=== PATIENT | female | born 1960 | race Caucasian/White ===

== ENCOUNTER 2016-06-02 09:32 | Emergency (ER) | payer OTHER ==
[2016-06-02] MEDS ORDERED: ACETAMINOPHEN 500 MG TAB ONE (10:12)
[2016-06-02] MEDS ORDERED: ACETAMINOPHEN 500 MG TAB PO ONE (10:20)
--- NOTE | 2016-06-02 11:13 | UCPHY ---
H & P Time Seen by Provider: 06/02/16 10:30 Patient Type: Established HPI/ROS: This patient has cough associated with high fevers and chills. She describes as a dry hacky cough that started yesterday associated with myalgias and fatigue. She also has a headache that follows the fever and decreases with over-the- counter antipyretics. No other exacerbating or alleviating factors. ROS: Constitutional: No complaints other than noted in HPI HEENT: Mild nasal congestion. No sore throat. She has mild ear pressure right more than left Pulmonary: No pleuritic pain. No respiratory distress Cardiac: No lightheadedness or heart palpitations A GI: No belly pain or vomiting. No diarrhea Integumentary: No skin rash 7 point ROS is otherwise negative Smoking Status: Never smoked Physical Exam: General Appearance: Alert, no distress. Eyes: Pupils equal and round no pallor or injection. ENT, Mouth: Mucous membranes moist. Respiratory: Mild rhonchi bilaterally. No rales. No significant wheeze. No increased work of breathing Cardiovascular: Regular rate and rhythm. No murmur gallop rub. Gastrointestinal: Abdomen is soft and nontender, no masses, bowel sounds normal. Neurological: Alert with no focal deficits Skin: Warm and dry, no rashes. Musculoskeletal: Neck is supple nontender. Extremities are symmetrical, full range of motion. Psychiatric: Mood and affect are normal DIFFERENTIAL DIAGNOSIS: After history and physical exam differential diagnosis was considered for influenza, bronchitis, pneumonia Constitutional: Initial Vital Signs Temperature (C) 39.4 C H 06/02/16 10:17 Heart Rate 99 06/02/16 10:17 Respiratory Rate 18 06/02/16 10:17 Blood Pressure 136/96 H 06/02/16 10:17 O2 Sat (%) 97 06/02/16 10:17 O2 Delivery Mode Room Air Allergies/Adverse Reactions: erythromycin base [Erythromycin Base] Allergy (Severe, Verified 06/02/16 10:19) Rash mefenamic acid [From Ponstel] Allergy (Severe, Verified 06/02/16 10:19) Rash Sulfa (Sulfonamide Antibiotics) Allergy (Severe, Verified 06/02/16 10:19) Rash cephalexin monohydrate [From Keflex] Allergy (Intermediate, Verified 06/02/16 10 :19) Other-Enter Comments Home Medications: Medication Instructions Recorded Tums 500MG (OTC) 10/19/14 Vitamin D3 (OTC) 10/19/14 traMADOL 10/19/14 Albuterol Hfa Anes Only [Proair 2 puffs IH Q4 PRN #1 mdi 06/02/16 Hfa Icu (*)] Calcium 06/02/16 Duloxetine HCl 06/02/16 MDM/Departure - MDM Medications Given: Discontinued Medications Acetaminophen (Tylenol) 1,000 mg PO EDNOW ONE Stop: 06/02/16 10:21 Last Admin: 06/02/16 10:22 Dose: 1,000 mg ED Course/Re-evaluation: Antipyretics with defervescence. Findings are classic for pneumonia. She appears nontoxic. Not think she has lower respiratory infection. I counseled regarding this. I suspect that the rapid flu test is a false negative on this patient. - Depart Disposition: Home, Routine, Self-Care Clinical Impression: Flu-like illness Condition: Fair Instructions: Influenza (ED) Additional Instructions: Diagnosis: Flu-like illness Although your for rapid flu test is negative think this is a false negative in this case. Findings are consistent with influenza Plan: Humidifier Ibuprofen or Tylenol for fevers and aches Albuterol inhaler with spacer for cough, wheeze or shortness of breath No work until ear fever has resolved for 24 hours more Return for any significant worsening despite the treatment plan Stand Alone Forms: Work Excuse Prescriptions: Albuterol Hfa Anes Only [Proair Hfa Icu (*)] 2 puffs IH Q4 PRN #1 mdi PRN Reason: Wheezing Referrals: MARIA D LAWRENCE [Primary Care Provider] - As per Instructions - PQRS PQRS Measurement: NA
[2016-06-02 11:25] VITALS: BP 122/88; PULSE 91; RESP 16; TEMP 99.9; O2SAT 92
== END 2016-06-02 11:24 | disposition home or self-care (01) ==
LOC: CED 09:32
DX: J11.1 Influenza due to unidentified influenza virus with other respiratory manifestations (principal)
CPT/HCPCS: 87400-PO; 99214-PO; G0463-PO

== ENCOUNTER 2016-09-17 18:41 | Emergency (ER) | payer OTHER ==
[2016-09-17 18:48] VITALS: BP 123/90; PULSE 81; RESP 18; TEMP 98.6; O2SAT 96
--- NOTE | 2016-09-17 19:17 | UCPHY ---
H & P Patient Type: Established Chief Complaint Nursing Narrative: hit r foot on car tire. Time Seen by Provider: 09/17/16 19:15 HPI/ROS: Chief complaint: Right small all toe pain HPI: 56-year-old woman accidentally struck her right little toe on her car tire 2 days ago. Has had pain and swelling at the site since then. No prior injuries. ROS: 10 point Review of Systems is negative except as noted in the HPI. Physical exam: General: Awake, alert, no acute distress Right foot: No ankle pain or tenderness, full range of motion of pain. No foot pain or tenderness other than tenderness and swelling at the base of her right little toe. There is ecchymosis and tenderness over her proximal phalanx. - Personal History Tetanus Vaccine Date: WITHIN 10 YRS - Medical/Surgical History Hx Asthma: No Hx Chronic Respiratory Disease: No Hx Diabetes: No Hx Cardiac Disease: No Hx Renal Disease: No Hx Cirrhosis: No Hx Alcoholism: No Hx HIV/AIDS: No Hx Splenectomy or Spleen Trauma: No Other PMH: denies - Family History Significant Family History: No pertinent family hx - Social History Smoking Status: Never smoked Constitutional: Initial Vital Signs Temperature (C) 37 C 09/17/16 18:45 Heart Rate 81 09/17/16 18:45 Respiratory Rate 18 09/17/16 18:45 Blood Pressure 123/90 H 09/17/16 18:45 O2 Sat (%) 96 09/17/16 18:45 O2 Delivery Mode Room Air Allergies/Adverse Reactions: erythromycin base [Erythromycin Base] Allergy (Severe, Verified 06/02/16 10:19) Rash mefenamic acid [From Ponstel] Allergy (Severe, Verified 06/02/16 10:19) Rash Sulfa (Sulfonamide Antibiotics) Allergy (Severe, Verified 06/02/16 10:19) Rash cephalexin monohydrate [From Keflex] Allergy (Intermediate, Verified 06/02/16 10 :19) Other-Enter Comments Home Medications: Medication Instructions Recorded Tums 500MG (OTC) 10/19/14 Vitamin D3 (OTC) 10/19/14 traMADOL 10/19/14 Albuterol Hfa Anes Only [Proair 2 puffs IH Q4 PRN #1 mdi 06/02/16 Hfa Icu (*)] Calcium 06/02/16 Duloxetine HCl 06/02/16 Medical Decision Making - Diagnostics Imaging Results: Imaging Impressions Foot X-Ray 09/17/16 18:50 Impression: Acute mildly displaced fracture involving the diaphyseal base of the fifth toe proximal phalanx. Imaging: I viewed and interpreted images myself Departure - Departure Disposition: Home, Routine, Self-Care Clinical Impression: Toe fracture Condition: Good Instructions: Toe Fracture (ED) Additional Instructions: Follow up with primary care physician in about a week. You should mateus tape your toe for support. Referrals: MARIA D LAWRENCE [Primary Care Provider] - As per Instructions - PQRS PQRS Measurement: NA
== END 2016-09-17 19:31 | disposition home or self-care (01) ==
LOC: CED 18:41
DX: S92.511A Displaced fracture of proximal phalanx of right lesser toe(s), initial encounter for closed fracture (principal); W22.09XA Striking against other stationary object, initial encounter; Y92.019 Unspecified place in single-family (private) house as the place of occurrence of the external cause
CPT/HCPCS: 73630-PO; 99214-PO; G0463-PO